=== PATIENT | female | born 1950 | race Caucasian/White ===

== ENCOUNTER 2018-08-19 08:20 | Outpatient (REF) | payer MEDICARE, BC, SELFPAY ==
[2018-08-19 14:18] LABS: ALT 35 U/L (12-78); AST 22 U/L (15-37); Albumin 3.6 g/dL (3.4-5.0); Alkaline Phosphatase 82 U/L (46-116); Anion Gap 10.5 mmol/L (3-11); BUN 25 mg/dL (7-18); Bilirubin, Total 0.5 mg/dL (0.2-1.0); CO2 26.5 mmol/L (21.0-32.0); CREATININE 0.69 mg/dL (0.55-1.02); Calcium 9.2 mg/dL (8.5-10.1); Calculated LDL 173 mg/dL; Chloride 105 mmol/L (98-107); Cholesterol 256 mg/dL (50-200); Glucose 87 mg/dL (70-100); HDL Cholesterol 71 mg/dL (40-60); Potassium 4.9 mmol/L (3.5-5.1); Sodium 142 mmol/L (136-145); Total Protein 6.9 g/dL (6.4-8.2); Triglyceride 60 mg/dL (30-150)
== END 2018-08-19 08:40 ==
LOC: NCHCN 08:20
PROVIDERS: PCP Family Medicine; Visit Provider Family Medicine
DX: E78.2 Mixed hyperlipidemia (principal)
CPT/HCPCS: 80053; 80061; 83721

== ENCOUNTER 2019-05-03 15:53 | Outpatient (REF) | payer MEDICARE, BC, SELFPAY ==
[2019-05-06 09:11] LABS: SARS-CoV-2 RNA Undetected (Undetected)
== END 2019-05-03 16:13 ==
LOC: NCHCN 15:53
PROVIDERS: PCP Family Medicine; Visit Provider Physician Assistant
DX: J06.9 Acute upper respiratory infection, unspecified (principal); Z20.828 Contact with and (suspected) exposure to other viral communicable diseases
CPT/HCPCS: U0003

== ENCOUNTER 2019-06-28 00:28 | Outpatient (CLI) | payer MEDICARE, BC, SELFPAY ==
--- NOTE | 2019-06-28 08:45 | DI.NM_ITS ---
APPROVED REPORT Exam: Exercise Treadmill Patient Location: Out-Patient Room/Bed: Stress Nurse: Mimi Logan RN BMI: 21.00 Baseline Rhythm: Sinus Rhythm Indications: Patient reports that approximately 2 weeks ago she woke up suddenly in the middle of the night with midsternal/substernal chest pain radiating to her right jaw which lasted approximately 10 minutes (pain went away on its own). She states she took 243 milligrams of Aspirin then fell back as leep and has not had any other symptoms since that one episode. Medical History Medical History: Strong family history of heart disease. Cardiac Medications: Aspirin Allergies: Tramadol, Environmental, Cats. Cardiac Risk Factors: FHX of CAD, Hyperlipidemia, Asthma Previous Cardiac Procedures: None Pretest Chest Pain Characteristics: No chest pain Exercise History: Physically active Physical Disabilities: None Lung Sounds: Clear to auscultation Heart Sounds: Regular Stress Test Details Test: Exercise stress testing was performed using a Matthew protocol. Nuclear Acquisition: Rest Tc-99m/Stress Tc-99m 1 day Rest Isotope: Tc-99m Sestamibi. Dose: 10 Date: 06/28/2019 Injection Time: 0845 Stress Isotope: Tc-99m Sestamibi. Dose: 31.0 Date: 06/28/2019 Injection Time: 1030 HR Resting HR Supine: 70 bpm Max Heart Rate (APMHR): 150 bpm Resting HR Standin bpm Target HR (85% APMHR): 127 bpm Max HR Achieved: 169 bpm % of APMHR: 112 HR response to stress: Normal HR response to stress BP Resting BP Supine: 114/68 mmHg Resting BP Standin/58 mmHg Max BP: 138/54 mmHg BP response to stress: Normal blood pressure response to stress. ECG Resting ECG: Sinus Rhythm Stress ECG: Sinus Tachycardia ST Change: Normal Arrhythmia: None Recovery ECG: Sinus Rhythm Recovery ST Change: Normal Recovery Arrhythmia: None Clinical Reason for Termination: Fatigue Stress Symptoms: Right sided chest pain at 6 minutes 42 seconds of exercise that stopped immediately upon stopping exercise. Exercise duration: 9 min21 sec Exercise capacity: 10.74 METs Functional Capacity: Above average capacity Stress ECG Conclusion 1. The patient exercised for 9 minutes (11 METS). 2. Rate-pressure product was 23,000. The patient had some chest discomfort during the test that did not limit her exercise. 3. There was no evidence of ischemia on the ECG portion of the exam. Stress Test Summary STAGE Time (mins) Speed (mph) Grade (%) HR BP SYMPTOMS METS Supine 70 114/68 Standing 76 110/58 1 3 1.7 10 124 126/62 4.6 2 6 2.5 12 150 136/58 7 3 9 3.4 14 167 138/54 10.2 1 min recovery 146 134/60 3 min recovery 102 126/62 6 min recovery 89 114/66 MPI Conclusion Ejection fraction with stress was 85%. There were no wall motion abnormalities. There is no evidence of ischemia on the imaging portion of the exam. This represents a normal SPECT stress test. Radiologist Interpretation Radiologist Interpretation by: Luis Armstrong MD Interpretation Date/Time: 06/29/2019 08:33:22
== END 2019-06-28 00:48 ==
PROVIDERS: PCP Family Medicine; Visit Provider Family Medicine
DX: R07.89 Other chest pain (principal); Z82.49 Family history of ischemic heart disease and other diseases of the circulatory system
CPT/HCPCS: 78452; 93016; 93018; 93017

== ENCOUNTER 2019-09-23 01:05 | Outpatient (CLI) | payer MEDICARE, BC, SELFPAY ==
--- NOTE | 2019-09-23 | DI.US_ITS ---
EXAM: US ABDOMEN CLINICAL HISTORY: EPIGASTRIC ABD PAIN,R10.13 TECHNIQUE: Ultrasound abdomen performed using standard protocol. COMPARISON: No exams were available for comparison FINDINGS: ABDOMINAL AORTA AND IVC: Visualized portions normal caliber. PANCREAS: Normal where visualized. LIVER: Normal. Hepatopedal flow in the Portal Vein. GALLBLADDER: No evidence of cholelithiasis. No evidence of wall thickening. No pericholecystic fluid identified. BILIARY SYSTEM: Common bile duct measures < 7 mm. No intrahepatic biliary ductal dilation. MOLINA'S SIGN: Negative. KIDNEYS: Kidneys are symmetric in size. No evidence of renal calculi. No evidence of hydronephrosis. No renal mass or cyst identified. SPLEEN: Not enlarged. ASCITES: None seen. IMPRESSION: Normal sonographic appearance of the upper abdomen. DATA REPOSITORY:
== END 2019-09-23 01:25 ==
PROVIDERS: PCP Family Medicine; Visit Provider Family Medicine
DX: R10.13 Epigastric pain (principal)
CPT/HCPCS: 76700

== ENCOUNTER 2019-10-08 18:18 | Outpatient (REF) | payer MEDICARE, BC, SELFPAY | END 2019-10-08 18:38 | LOC: NCHCN 18:18 | PROVIDERS: PCP Family Medicine; Visit Provider Family Medicine | DX: N39.0 Urinary tract infection, site not specified (principal) | CPT/HCPCS: 87077; 87086 ==

== ENCOUNTER 2019-11-23 01:41 | Outpatient (CLI) | payer MEDICARE, BC, SELFPAY ==
[2019-11-23 09:00] LABS: ALT 54 U/L (14-59); Calculated LDL 123 mg/dL (<100); Cholesterol 208 mg/dL (<200); HDL Cholesterol 78 mg/dL (40-60); Triglyceride 39 mg/dL (<150)
== END 2019-11-23 02:01 ==
PROVIDERS: PCP Family Medicine; Visit Provider Family Medicine
DX: E78.5 Hyperlipidemia, unspecified (principal)
CPT/HCPCS: 36415; 80061; 84460

== ENCOUNTER 2020-09-13 09:19 | Outpatient (REF) | payer MEDICARE, BC, SELFPAY ==
[2020-09-13 14:29] LABS: Bilirubin Negative (Negative); Blood Trace-intact (Negative); Clarity Clear (Clear); Glucose Negative (Negative); Ketones Negative (Negative); Leukocyte Esterase Trace (Negative); Nitrite Negative (Negative); Specific Gravity 1.015 (1.005-1.025); Urobilinogen 0.2 EU/dL (Up TO 0.2)
[2020-09-13 14:46] LABS: Bacteria Few HPF (Negative); C & S Indicated? Yes; Casts Negative LPF (Negative); Crystals Negative HPF (Negative); Epithelial Cells Few HPF (Negative); Mucus Negative (Negative); Other Cells Few Transitional (Negative)
== END 2020-09-13 09:20 | disposition home or self-care (01) ==
LOC: LBN 09:19
PROVIDERS: PCP Family Medicine; Visit Provider Family Medicine
DX: R10.31 Right lower quadrant pain (principal); N95.0 Postmenopausal bleeding; R82.998 Other abnormal findings in urine
CPT/HCPCS: 81003; 81015; 87086

== ENCOUNTER 2020-10-04 01:22 | Outpatient (CLI) | payer MEDICARE, BC, SELFPAY ==
--- NOTE | 2020-10-04 | DI.US_ITS ---
Exam(s) US PELVIS TRANSVAGINAL EXAM: US PELVIS TRANSVAGINAL CLINICAL HISTORY: POSTMENOPAUSAL VAGINAL BLEEDING, N95.0, RT LOWER QUAD PAIN TECHNIQUE: Ultrasound of the pelvis was performed both transabdominal and transvaginal. COMPARISON: US US ABDOMEN from 09/23/2019 FINDINGS: UTERUS: Uterus is surgically absent. CERVIX: There are no obvious nabothian cysts. RIGHT OVARY: Measures 2.6 x 0.8 x 1.9 cm No significant cysts nor masses evident in the right ovary. LEFT OVARY: Measures 2.3 x 1.8 x 1.1 cm No significant cysts nor masses evident in the left ovary. CUL-DE-SAC: No free fluid evident. IMPRESSION: 1. Uterus surgically absent. 2. No abnormal ovarian findings. 3. No extraovarian adnexal masses nor free fluid in the cul-de-sac. DATA REPOSITORY:
== END 2020-10-04 01:42 ==
PROVIDERS: PCP Family Medicine; Visit Provider Family Medicine
DX: N95.0 Postmenopausal bleeding (principal); R10.31 Right lower quadrant pain; Z90.710 Acquired absence of both cervix and uterus
CPT/HCPCS: 76830; 76856

== ENCOUNTER 2020-11-08 15:47 | Outpatient (REF) | payer MEDICARE, BC, SELFPAY ==
[2020-11-08 20:09] LABS: Calculated LDL 153 mg/dL (<100); Cholesterol 243 mg/dL (<200); HDL Cholesterol 79 mg/dL (40-60); Triglyceride 59 mg/dL (<150)
[2020-11-09 12:28] LABS: Vitamin D 25 Total 76.6 ng/mL (30-100)
== END 2020-11-08 15:48 | disposition home or self-care (01) ==
LOC: NCHCN 15:47
PROVIDERS: PCP Family Medicine; Visit Provider Family Medicine
DX: E78.5 Hyperlipidemia, unspecified (principal); E55.9 Vitamin D deficiency, unspecified
CPT/HCPCS: 80061; 82306

== ENCOUNTER 2021-03-05 13:32 | Outpatient (REF) | payer MEDICARE, BC, SELFPAY ==
[2021-03-05 15:13] LABS: ALT 50 U/L (14-59); AST 28 U/L (15-37); Albumin 3.8 g/dL (3.4-5.0); Alkaline Phosphatase 91 U/L (46-116); Anion Gap 5.8 mmol/L (3-11); BUN 14 mg/dL (7-18); Bilirubin, Total 0.6 mg/dL (0.2-1.0); CO2 30.2 mmol/L (21.0-32.0); CREATININE 0.7 mg/dL (0.55-1.02); Calcium 9.1 mg/dL (8.5-10.1); Calculated LDL 115 mg/dL (<100); Chloride 102 mmol/L (98-107); Cholesterol 207 mg/dL (<200); Glucose 95 mg/dL (74-106); HDL Cholesterol 77 mg/dL (40-60); Potassium 4.3 mmol/L (3.5-5.1); Sodium 138 mmol/L (136-145); Total Protein 7.3 g/dL (6.4-8.2); Triglyceride 76 mg/dL (<150)
== END 2021-03-05 13:33 | disposition home or self-care (01) ==
LOC: NCHCN 13:32
PROVIDERS: PCP Family Medicine; Visit Provider Family Medicine
DX: E78.5 Hyperlipidemia, unspecified (principal); Z00.00 Encounter for general adult medical examination without abnormal findings
CPT/HCPCS: 80053; 80061

== ENCOUNTER 2021-11-09 20:14 | Outpatient (REF) | payer MEDICARE, BC, SELFPAY ==
[2021-11-09 19:28] LABS: Bilirubin Negative (Negative); Blood Small (Negative); Clarity Sl Cloudy (Clear); Glucose Negative (Negative); Ketones Negative (Negative); Leukocyte Esterase Small (Negative); Nitrite Negative (Negative); Urobilinogen 0.2 EU/dL (Up TO 0.2); pH 5.5 (5-8)
[2021-11-09 19:35] LABS: Bacteria Few HPF (Negative); C & S Indicated? Yes; Casts Negative LPF (Negative); Crystals Negative HPF (Negative); Epithelial Cells Few HPF (Negative); Mucus Negative (Negative); WBC 20-50 HPF (0-5)
== END 2021-11-09 20:15 | disposition home or self-care (01) ==
LOC: NCHCN 20:14
PROVIDERS: PCP Family Medicine; Visit Provider Family Medicine
DX: R30.0 Dysuria (principal)
CPT/HCPCS: 87077; 81003; 81015; 87086; 87186

== ENCOUNTER → 2022-09-30 03:42 | Outpatient (CLI) | payer MEDICARE, BC, SELFPAY ==
--- NOTE | 2022-09-30 08:35 | DI.US_ITS ---
Exam(s) US SOFT TISSUE HEAD OR NECK EXAM: US SOFT TISSUE HEAD OR NECK CLINICAL HISTORY: RT NECK PAIN, M54.2, swollen gland. TECHNIQUE: Ultrasound was performed using standard protocol. COMPARISON: No exams were available for comparison FINDINGS: Sonographic assessment utilizing grayscale and color Doppler imaging was performed and targeted to th e area of clinical concern. There are several lymph nodes seen in the right neck. They have a benign sonographic appearance with an eccentric fatty hilum. The largest measures 2.5 x 0.4 x 1.3 cm. No suspicious cystic or solid m asses are seen in the right neck. IMPRESSION: 1. Sonographically benign appearing lymph nodes in the right neck. The largest measures 2.5 cm long. 2. No suspicious cystic or solid masses are seen in the right neck. DATA REPOSITORY:
== END ==
PROVIDERS: PCP Family Medicine; Visit Provider Nurse Practitioner Family
DX: M54.2 Cervicalgia (principal)
CPT/HCPCS: 76536

== ENCOUNTER 2022-10-21 12:33 | Outpatient (REF) | payer MEDICARE, BC, SELFPAY ==
[2022-10-21 15:16] LABS: Calculated LDL 91 mg/dL (<100); Cholesterol 185 mg/dL (<200); HDL Cholesterol 89 mg/dL (40-60); Triglyceride 28 mg/dL (<150)
== END 2022-10-21 12:34 | disposition home or self-care (01) ==
LOC: NCHCN 12:33
PROVIDERS: PCP Family Medicine; Visit Provider Family Medicine
DX: E78.5 Hyperlipidemia, unspecified (principal)
CPT/HCPCS: 80061

== ENCOUNTER 2022-12-06 11:14 | Outpatient (CLI) | payer MEDICARE, BC, SELFPAY ==
--- NOTE | 2022-12-06 11:15 | RT.EKG_ITS ---
APPROVED REPORT Exam: Resting ECG Reason for Exam: NPW baseline needed Patient Location: O HR:75 bpm ECG Measurements Heart Rate 75 AXIS MT 114 P 77 QRSd 91 QRS 30 QT 374 T 51 QTc 418 Conclusion Sinus rhythm...normal P axis, V-rate 50- 99 Borderline short MT interval...MT int <120mS Normal Electrocardiogram
== END 2022-12-06 11:15 | disposition home or self-care (01) ==
LOC: DI.CARD 11:23
PROVIDERS: PCP Family Medicine; Referring Provider Family Medicine; Visit Provider Internal Medicine Cardiovascular Disease
DX: R06.02 Shortness of breath (principal)
CPT/HCPCS: 93010

== ENCOUNTER → 2022-12-06 11:14 | Outpatient (BNVA) | payer MEDICARE, BC, SELFPAY | PROVIDERS: PCP Family Medicine; Referring Provider Family Medicine; Visit Provider Internal Medicine Cardiovascular Disease | DX: M54.2 Cervicalgia (principal); E78.00 Pure hypercholesterolemia, unspecified; R07.9 Chest pain, unspecified | CPT/HCPCS: 93005; 99203 ==

== ENCOUNTER → 2022-12-16 00:12 | Outpatient (CLI) | payer MEDICARE, BC, SELFPAY ==
--- NOTE | 2022-12-16 07:00 | DI.NM_ITS ---
APPROVED REPORT Exam: Exercise Treadmill Patient Location: Out-Patient Room/Bed: Stress Nurse: Everett Prasad RN Ordering Provider:IBIS PRAJAPATI, Contact Number: BMI: 20.69 Baseline Rhythm: Sinus Rhythm Indications: Chest pain and dyspnea on exertion. Medical History Medical History: high cholesterol, asthma. Cardiac Medications: atorvastatin Allergies: tramadol Cardiac Risk Factors: high cholesterol. Previous Cardiac Procedures: none Exercise History: Physically active Physical Disabilities: none Lung Sounds: clear Heart Sounds: reg Stress Test Details Test: Exercise stress testing was performed using a Matthew protocol. Nuclear Acquisition: Rest Tc-99m/Stress Tc-99m 1 day Rest Isotope: Tc-99m Sestamibi. Dose: 10.0 Date: 12/16/2022 Injection Time: 0915 Stress Isotope: Tc-99m Sestamibi. Dose: 31.0 Date: 12/16/2022 Injection Time: 1107 HR Resting HR Supine: 67 bpm Max Heart Rate (APMHR): 147.020311 bpm Resting HR Standin bpm Target HR (85% APMHR): 124.051066 bpm Max HR Achieved: 148 bpm % of APMHR: 100.68 Recovery HR: 70 bpm HR response to stress: Normal HR response to stress BP Resting BP Supine: 122/72 mmHg Resting BP Standin/58 mmHg Max BP: 138/62 mmHg Recovery BP: 112/68 mmHg BP response to stress: Normal blood pressure response to stress. ECG Resting ECG: Sinus Rhythm Ectopy: none Stress ECG: Sinus Tachycardia ST Change: No significant ST segment changes noted Arrhythmia: none Recovery ECG: Sinus Rhythm Recovery ST Change: No significant ST segment changes noted Recovery Arrhythmia: none Clinical Exercise duration: 4 min54 sec Highest Stage Reached: Stage 2: 2.5 mph at 12% grade. Exercise capacity: 6.92 METs Rate Pressure Product: [id number] Stress ECG Conclusion 1. Electrocardiogram was within normal limits 2. Patient walked on the Matthew protocol and completed a workload of 6.92 METS 3. Normal heart rate and blood pressure response to exercise. The patient achieved 100% of predicted heart rate for age 4. There was no electrocardiographic evidence of myocardial ischemia 5. There were no dysrhythmias 6. See MPI report Stress Test Summary STAGE Time (mins) Speed (mph) Grade (%) HR BP SpO2 SYMPTOMS METS Supine 67 122/72 98 Standing 71 112/58 1 3 1.7 10 122 122/62 95 4.5 1 min recovery 148 138/62 96 3 min recovery 71 122/72 98 6 min recovery 70 112/68 98 MPI Conclusion Myocardial perfusion is normal. There is no ischemia or evidence of prior infarction Ejection fraction is 87% with hyperdynamic wall motion Radiologist Interpretation Radiologist Interpretation by: Luis Armstrong MD Interpretation Date/Time: 12/16/2022 16:17:50
== END ==
PROVIDERS: PCP Family Medicine; Visit Provider Internal Medicine Cardiovascular Disease
DX: E78.00 Pure hypercholesterolemia, unspecified (principal); R07.9 Chest pain, unspecified
CPT/HCPCS: 78452; 93016; 93018; 93017

== ENCOUNTER → 2022-12-30 02:46 | Outpatient (CLI) | payer MEDICARE, BC, SELFPAY ==
--- NOTE | 2022-12-30 | DI.DEXA_ITS ---
Exam(s) XR DEXA BONE DENSITY W/WO JUJU EXAM: XR DEXA BONE DENSITY W/WO JUJU CLINICAL HISTORY: POSTMENOPAUSAL SCREENING, Z78.0 TECHNIQUE: [employer] Horizon C densitometer analysis of left hip, lumbar spine and left forearm. Lat eral survey image of the thoracic and lumbar spine. COMPARISON: No exams were available for comparison FINDINGS: Lateral view of the thoracic and lumbar spine shows no evidence of compression fractures. Bone mineral density measurements of the lumbar spine correspond to a total T-score of -1.9, in the osteopenic range. Bone mineral density measurements of the left hip correspond to a total T-score of -1.7 . The femora l neck T-score is -1.1, in the osteopenic range. . Theleft forearm bone mineral density measurements correspond to a T-score of the distal 3rd of -2.9, in the osteoporotic range.. IMPRESSION: Osteopenia of the spine and hip. Osteoporosis of the forearm.
== END ==
PROVIDERS: PCP Family Medicine; Visit Provider Family Medicine
DX: Z78.0 Asymptomatic menopausal state (principal); Z13.820 Encounter for screening for osteoporosis
CPT/HCPCS: 77080

== ENCOUNTER → 2023-08-06 20:23 | Outpatient (CLI) | payer MEDICARE, BC, SELFPAY ==
--- NOTE | 2023-08-06 | DI.RAD_ITS ---
Exam(s) XR KNEE RT 3V AP,LAT,FELIPA EXAM: XR KNEE RT 3V AP,LAT,FELIPA CLINICAL HISTORY: M25.561 Pain in rt knee. TECHNIQUE: 2D digital imaging was performed of the right knee. Three views obtained. AP, lateral an d PA tunnel views were obtained. COMPARISON: No priors for comparison. FINDINGS: BONES: No acute fracture is present. No bony destructive lesion is seen. There are enthesophytes at t he anterior patella. JOINTS: The knee is normally aligned. There is a small joint effusion. The articular surfaces are we ll maintained. SOFT TISSUE: Normal. IMPRESSION: No acute fracture or dislocation. DATA REPOSITORY: RADIATION DOSE DELIVERED:
--- NOTE | 2023-08-06 17:37 | DI.VRAD_ITS ---
PROCEDURE INFORMATION: Exam: XR Right Knee Exam date and time: 08/06/2023 4:50 PM Age: 73 years old Clinical indication: Other: Pain in RT knee TECHNIQUE: Imaging protocol: Radiologic exam of the right knee. Views: 3 views. COMPARISON: No relevant prior studies available. FINDINGS: Bones/joints: No acute fracture or subluxation. Small joint effusion. Soft tissues: Benign appearing distal quadriceps enthesophyte. Vasculature: Atherosclerosis. IMPRESSION: 1. No acute bony pathology. 2. Small joint effusion. Dictated and Authenticated by: Maya Amaya MD. Ordering:ANNA King MD
== END ==
PROVIDERS: PCP Family Medicine; Visit Provider Physician Assistant Medical
DX: M25.561 Pain in right knee (principal)
CPT/HCPCS: 73562

== ENCOUNTER 2023-10-20 17:14 | Observation (INO) | payer MEDICARE, BC, SELFPAY ==
[2023-10-20] VITALS (50 sets, daily range): BP systolic 97–166; BP diastolic 36–75; PULSE 60–88; RESP 9–28; TEMP 36.1–36.7; O2SAT 95–99
--- NOTE | 2023-10-20 17:15 | RT.EKG_ITS ---
APPROVED REPORT Exam: Resting ECG Reason for Exam: Chest Pain Patient Location: E HR:70 bpm ECG Measurements Heart Rate 70 AXIS WV 111 P 74 QRSd 91 QRS 55 QT 383 T 68 QTc 413 Conclusion Sinus rhythm 70 Normal axis no stemi
[2023-10-20] MEDS: Aspirin 81 MG CHEW 324 MG CH (17:31)
[2023-10-20] MEDS: nitroGLYcerin 0.4 MG TAB SL (17:40)
[2023-10-20 17:46] LABS: Abs Immature Grans 0.01 10^3/uL (0.0-0.06); Absolute Basophil Count 0.04 10^3/uL (0.0-0.2); Absolute Eosinophil Count 0.05 10^3/uL (0.0-0.7); Absolute Lymphocyte Count 2.07 10^3/uL (1.2-3.4); Absolute Monocyte Count 0.36 10^3/uL (0.1-0.8); Basophils % 0.7 %; Eosinophils % 0.9 %; HCT 39.4 % (36.0-46.0); HGB 13.1 g/dL (11.2-15.7); Immature Grans % 0.2 %; Lymphocytes % 38.1 %; MCH 31.9 pg (27.0-33.0); MCHC 33.2 % (32.0-36.0); MCV 96 fL (80-95); MPV 9.5 fL (8.0-11.0); Monocytes % 6.6 %; Neutrophils % 53.5 %; Platelet Count 314 10^3/uL (130-400); RBC 4.11 10^6/uL (3.93-5.22); RDW 13.4 % (11.7-14.6); RDW-SD 47.8 fL; WBC 5.43 10^3/uL (4.4-10.8)
--- NOTE | 2023-10-20 18:03 | DI.RAD_ITS ---
Exam(s) XR PORTABLE CHEST AP EXAM: XR PORTABLE CHEST AP CLINICAL HISTORY: chest pain TECHNIQUE: 2D digital imaging was performed of the chest. One image was obtained. An AP view was ob tained. COMPARISON: CR CHEST 2 VIEWS PA,LAT from 01/27/2014 FINDINGS: MEDIASTINUM: Normal. HEART: Normal. PULMONARY VASCULATURE: Normal. LUNGS: Clear. PLEURAL SPACE: No pleural effusion or pneumothorax. BONE:Within normal limits for the patient's age. OTHER FINDINGS:Normal. IMPRESSION: No acute pulmonary findings. DATA REPOSITORY: RADIATION DOSE DELIVERED:
[2023-10-20 18:14] LABS: ALT 30 U/L (14-59); AST 26 U/L (15-37); Albumin 3.8 g/dL (3.4-5.0); Alkaline Phosphatase 94 U/L (46-116); Anion Gap 5.5 mmol/L (3-11); BUN 10 mg/dL (7-18); CO2 29.5 mmol/L (21.0-32.0); CREATININE 0.8 mg/dL (0.55-1.02); Chloride 101 mmol/L (98-107); Estimated GFR 77.27 (mL/min/1.73m2); Glucose 132 mg/dL (74-106); Magnesium 2.1 mg/dL (1.8-2.4); NT-proBNP 39 pg/mL (<300); Potassium 3.5 mmol/L (3.5-5.1); Sodium 136 mmol/L (136-145); Total Protein 8.1 g/dL (6.4-8.2); Troponin I 4 ng/L (4-51)
--- NOTE | 2023-10-20 18:15 | ED.GENADUL_ITS ---
Discharge Plan Disposition Patient Disposition: Admit to [facility] Condition: Stable Discharge Details Chief Complaint: Chest Pain Clinical Impression: Chest pain Primary Care Provider: Kalpana Ayon ED Provider: Humberto Kay Home Meds and New Rx's Prescriptions: No Action montelukast 10 mg tablet 10 mg PO QPM vitamin B complex [B Complex-Vitamin B12] tablet 1 tab PO DAILY cholecalciferol (vitamin D3) 50,000 unit capsule 50,000 unit PO QWEEK levalbuterol tartrate [Xopenex HFA] 45 mcg/actuation HFA aerosol inhaler 2 inh IH Q6H aspirin [Adult Low Dose Aspirin] 81 mg tablet,delayed release (DR/EC) 81 mg PO DAILY PRN estradiol [Vagifem] 10 mcg tablet 10 mcg vaginal DAILY 360 Days Qty: 30 3RF Rx Instructions: Insert vaginally daily for 7 days, then twice weekly. atorvastatin [Lipitor] 10 mg tablet 10 mg PO QHS fexofenadine [Allergy Relief (fexofenadine)] 60 mg tablet 60 mg PO DAILY amlodipine 5 mg tablet 5 mg PO DAILY Patient Comments: TAKE 1 TABLET BY MOUTH DAILY coenzyme Q10 [Co Q-10] 10 mg capsule 10 mg PO ONCE HPI General Date/Time Provider Initiated Documentation: 10/20/23 17:17 . Limitations to Documentation: no limitations . Information obtained by: patient . HPI Narrative: 73-year-old female past medical history hide for Stable angina with recent left heart cath performed at [facility] presents for evaluation of chest pressure. She reports that she had her catheterization on Friday. Since then she is feeling substernal pressure that radiates up into her neck. It is definitely a he noticed some normal. She rates that around 4 out of 10. Feels like she cannot take a deep breath, but otherwise is not really short of breath. No nausea or diaphoresis. She states that over some time she has been having stable exertional pain and she has relieved with rest and nitro. This is what led to his catheterization. She states that now she is having this pain with minimal exertion such as going up the stairs to her house or walking around her house. She has been unable to do her normal activities and not reports that she is very fit and active. She needs constant chest normal for her so after the previous seen here, she was maintained about the ongoing pain. She talked to her institutional commodity analyst today at [facility] who informed her that this is not long she should come to the emergency department for evaluation.. Related Data Home Medications ?Medication ?Instructions ?Recorded ?Confirmed cholecalciferol (vitamin D3) 1,250 50,000 unit PO QWEEK 03/05/18 10/20/23 mcg (50,000 unit) capsule levalbuterol tartrate 45 2 inh inhalation Q6H 03/05/18 10/20/23 mcg/actuation aerosol inhaler (Xopenex HFA) montelukast 10 mg tablet 10 mg PO QPM 03/05/18 10/20/23 vitamin B complex (B 1 tab PO DAILY 03/05/18 10/20/23 Complex-Vitamin B12 tablet) estradiol 10 mcg vaginal tablet 10 mcg vaginal DAILY 12 months #30 12/31/21 10/20/23 (Vagifem) tabs atorvastatin 10 mg tablet (Lipitor) 10 mg PO QHS 12/03/22 10/20/23 fexofenadine 60 mg tablet (Allergy 60 mg PO DAILY 12/03/22 10/20/23 Relief (fexofenadine)) aspirin 81 mg tablet,delayed 81 mg PO DAILY PRN 12/06/22 10/20/23 release (Adult Low Dose Aspirin) amlodipine 5 mg tablet 5 mg PO DAILY 10/20/23 10/20/23 coenzyme Q10 10 mg capsule (Co 10 mg PO ONCE 10/20/23 10/20/23 Q-10) Previous Rx's ?Medication ?Instructions ?Recorded estradiol 10 mcg vaginal tablet 10 mcg vaginal DAILY 12 months #30 12/31/21 (Vagifem) tabs Allergies Allergy/AdvReac Type Severity Reaction Status Date / Time tramadol Allergy Intermediate Psychosis Verified 10/20/23 17:46 General Stated Complaint: Chest Pain OMERO: 3 Exam Narrative Exam Narrative: Review of Systems: All systems reviewed & are unremarkable except as noted in HPI and below Well-developed, no acute distress NCAT PERRL, normal conjunctiva RRR no murmur, no chest wall tenderness Unlabored respiratory effort, clear bilaterally Nondistended abdomen, soft nontender Extremities w/o edema Course Vital Signs Vital signs: Vital Signs Pulse 70 10/20/23 17:22 Respiratory Rate 21 10/20/23 17:22 Blood Pressure 166/60 H 10/20/23 17:22 Pulse 84 10/20/23 17:49 Pulse 65 10/20/23 18:04 Respiratory Rate 11 L 10/20/23 18:04 Respiratory Effort Normal 10/20/23 17:29 Respiratory Depth Normal 10/20/23 17:29 Respiratory Pattern Normal 10/20/23 17:29 Blood Pressure 117/59 L 10/20/23 17:49 Blood Pressure Mean 76 10/20/23 17:46 Blood Pressure Position Sitting 10/20/23 17:24 Pulse Oximetry 95 10/20/23 17:49 Oxygen Delivery Method Room Air 10/20/23 17:49 Oxygen Flow Rate 0 10/20/23 17:49 Pain Level 3 10/20/23 17:24 Lab/Test Results Lab/Test Results: Laboratory Tests Range/Units 10/20/23 17:42 WBC (4.4-10.8) 10^3/uL 5.43 RBC (3.93-5.22) 10^6/uL 4.11 Hgb (11.2-15.7) g/dL 13.1 Hct (36.0-46.0) % 39.4 MCV (80-95) fL 96 H MCH (27.0-33.0) pg 31.9 MCHC (32.0-36.0) % 33.2 RDW (11.7-14.6) % 13.4 Plt Count (130-400) 10^3/uL 314 MPV (8.0-11.0) fL 9.5 Immature Gran % % 0.2 Neutrophils % % 53.5 Lymphocytes % % 38.1 Monocytes % % 6.6 Eosinophils % % 0.9 Basophils % % 0.7 Nucleated RBC % (0.0-0.3) % 0.0 Absolute Neutrophils (1.2-6.7) 10^3/uL 2.90 Absolute Lymphocytes (1.2-3.4) 10^3/uL 2.07 Absolute Monocytes (0.1-0.8) 10^3/uL 0.36 Absolute Eosinophils (0.0-0.7) 10^3/uL 0.05 Absolute Basophils (0.0-0.2) 10^3/uL 0.04 Medical Decision Making Emergent evaluation of chest pain. Patient had recent cardiac catheterization. She reports 2 vessels with occlusions of 50 to 20%. No stenting was performed. She was started on a blood thinner. Her EKG was independently reviewed by me, sinus 70 normal axis, no acute ischemic changes. She is currently having symptoms. And chest pain that she describes as pressure. Given known coronary disease recent procedure, patient highly suspicious for cardiac etiology. Full dose aspirin given, will give nitro differently chest pain. Given catheterization at [facility], we will touch base with their institutional commodity analyst once labs result to determine best course of action. 1820 labs reviewed. There is no leukocytosis or significant anemia. There is no electrolyte derangement, or renal insufficiency. Mild elevation in glucose without signs of DKA. First high sensitivity troponin is 4. I have reached out to [facility] cardiology for consultation regarding their post cath patient 1939 The patient's has spoken with the credit collections specialist at [facility]. They are requesting a D-dimer which I will add to the labs. Her second troponin has also resulted and is 5. There is significant delta there. Still waiting for formal consultation with cardiology/ 2034 Spoke with heel sprayer first Dr. Shoemaker. Discussed the elevated D-dimer and so this does not seem clinically to indicate a pulmonary embolism, at this point we will have to get a CTA to further evaluate. He does not recommend heparin infusion at this point. He does recommend starting Imdur 30 mg and reevaluating the exertional chest pain. At this time he has accepted the patient for admission under Dr. Meadows. They are currently listing cases for transfer for tomorrow. Given that, I have discussed with Dr. Vernon the hospitalist to admit the patient to their service pending transfer to [facility]. He will follow-up on how she is feeling after the imdur CTA. Quality:[facility] Health Related Social Needs: No Data to Display PFSH All Active Problems (Updated 10/20/23 @ 21:42 by Humberto Kay MD) Chest pain (Acute) Chest pain on exertion (Acute) Family history of colon cancer (Acute) Family history of breast cancer (Acute) Atrophic vaginitis (Acute) Mild persistent asthma (Chronic) Medical History ALMA exposure in utero Endometriosis Seasonal allergies Neck pain Vitamin D deficiency disease Anemia Family history of colon cancer requiring screening colonoscopy High cholesterol Family History Maternal Grandmother CAD (coronary artery disease) Heart disease several [place]'s 70 Stroke Mother Breast cancer CAD (coronary artery disease) Sister Breast cancer Maternal Uncle , age 56 Stroke Sister Uterine cancer Cervical cancer Father Colon cancer age 70 Paternal Grandfather Colon cancer in 70's Other Cancer Social History Smoking risk assessment performed?: No Drug use: Never Household members: spouse 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 What is your relationship status?: Panel score (0-1 are the most socially isolated patients): 1 What type of physical activity do you participate in: bicycling and regular exercise Duration: 30-45 minutes/day Female Reproductive History Menstrual Age of Menarche: 11 control method: none Menopause type: surgical Date of menopause: 02/10/79 History History 5 Para Hx # Term Pregnancies 3 Multiple births Hx # Pregnancies Ectopic pregnancies AB induced Hx Number of Living Children 3 AB spontaneous 2
[2023-10-20 19:14] LABS: Troponin I 5 ng/L (4-51)
[2023-10-20 20:10] LABS: D-Dimer 1378 ng/mlFEU (<500)
[2023-10-20] MEDS: Isosorbide Mononitrate 30 MG TABCR PO (20:58)
[2023-10-20 21:09] LABS: Troponin I 6 ng/L (4-51)
--- NOTE | 2023-10-20 21:33 | HPE_ITS ---
Date of service: 10/20/23 Time of Service: 21:33 Assessment and Plan Assessment and plan (1) Chest pain: Status: Acute Assessment and plan: Though there are some questions here, I think one has to regard this essentially as a continuation of prior anginal syndrome, in that the symptoms are exertional, consistent with angina and respond to NTG; in addition there was definite CAD identified on recent cath. What is most puzzling, though, is why the threshold for triggering pain should be lower since procedure; as well as negative trops and normal EKG given report of persistent pain. I suppose some complication of the procedure itself would satisfy some of these questions but there is no evidence of such at present. For now patient has been given dose of Imdur and is asymptomatic. I would monitor overnight, continue the Imdur, with planned transfer to [facility] in morning per Cardiology. In meantime will await results of CTA, though story does not seem suggestive of PE. History of Present Illness History of Present Illness Chief Complaint: CP Narrative: 73 female with h/o exertional chest pain over past 2-4 years, typically only with only fairly intense activity, such as climbing a slope. Pain is described as a heaviness or pressure, with radiation to neck. Due (she reports) to various delays in her getting evaluated it was only recently that she was advised to have cardiac cath, which was done 3 days DIRECTOR OF TESTING. report is that there was one 50% lesion, one 20% (I do not have the precise locations) but that they were deemed not target lesions and no PCI was performed. She had previously been on ASA and statin, Amlodipine was added to the regimen. Since discharge she reports persistent waxing and waning pain which is essentially identical to prior, but ois now occurring with qwuite modest degrees of acticvity. Again, relived by rest. She was advised to come to ERR. Here in ER w/u has been of note for normal EKG (with pain ); negative trop x2; negative CXR; and d-Dimer 1663; CTA is pending. NTG SL x1 relieved the pain entirely. [facility] was consulted and advised adding Imdur, and patient is accepted for transfer tomorrow to service of Dr. Meadows. Review of Systems Narrative: per HPI PFSH All Active Problems (Updated 10/20/23 @ 21:42 by Humberto Kay MD) Chest pain (Acute) Chest pain on exertion (Acute) Family history of colon cancer (Acute) Family history of breast cancer (Acute) Atrophic vaginitis (Acute) Mild persistent asthma (Chronic) Medical History ALMA exposure in utero Endometriosis Seasonal allergies Neck pain Vitamin D deficiency disease Anemia Family history of colon cancer requiring screening colonoscopy High cholesterol Family History Maternal Grandmother CAD (coronary artery disease) Heart disease several NH's 70 Stroke Mother Breast cancer CAD (coronary artery disease) Sister Breast cancer Maternal Uncle , age 56 Stroke Sister Uterine cancer Cervical cancer Father Colon cancer age 70 Paternal Grandfather Colon cancer in 70's Other Cancer Social History Smoking risk assessment performed?: No Drug use: Never Household members: spouse 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 What is your relationship status?: Panel score (0-1 are the most socially isolated patients): 1 What type of physical activity do you participate in: bicycling and regular exercise Duration: 30-45 minutes/day Female Reproductive History Menstrual Age of Menarche: 11 control method: none Menopause type: surgical Date of menopause: 02/10/79 History History 2 5 Para Hx # Term Pregnancies 3 Multiple births Hx # Pregnancies Ectopic pregnancies AB induced Hx Number of Living Children 3 AB spontaneous 2 Meds Allergies and Home Medications Allergies Allergy/AdvReac Type Severity Reaction Status Date / Time tramadol Allergy Intermediate Psychosis Verified 10/20/23 17:46 Home Medications ?Medication ?Instructions ?Recorded ?Confirmed ?Type cholecalciferol (vitamin D3) 1,250 50,000 unit PO QWEEK 03/05/18 10/20/23 History mcg (50,000 unit) capsule levalbuterol tartrate 45 2 inh inhalation Q6H 03/05/18 10/20/23 History mcg/actuation aerosol inhaler (Xopenex HFA) montelukast 10 mg tablet 10 mg PO QPM 03/05/18 10/20/23 History vitamin B complex (B 1 tab PO DAILY 03/05/18 10/20/23 History Complex-Vitamin B12 tablet) estradiol 10 mcg vaginal tablet 10 mcg vaginal DAILY 12 months #30 12/31/21 10/20/23 Rx (Vagifem) tabs atorvastatin 10 mg tablet (Lipitor) 10 mg PO QHS 12/03/22 10/20/23 History fexofenadine 60 mg tablet (Allergy 60 mg PO DAILY 12/03/22 10/20/23 History Relief (fexofenadine)) aspirin 81 mg tablet,delayed 81 mg PO DAILY PRN 12/06/22 10/20/23 History release (Adult Low Dose Aspirin) amlodipine 5 mg tablet 5 mg PO DAILY 10/20/23 10/20/23 History coenzyme Q10 10 mg capsule (Co 10 mg PO ONCE 10/20/23 10/20/23 History Q-10) Exam Narrative Exam Narrative: 142/57, 78, temp not recorded, 18, 95% RA. HEENT atraumatic; neck supple, JVP approx 4 cm; lungs clear; heart RRR w/o MRG; abdomen soft and NT; extremities w/o edema, right radial pulse (site of cath insertion) full w/o hematoma, pedal pulses 2+/=; neuro Ox3, lucid, moves all 4s Results Labs 10/20/23 17:42 10/20/23 17:42 Labs: Laboratory Results - last 24 hr 10/20/23 10/20/23 10/20/23 17:42 18:50 20:42 WBC 5.43 RBC 4.11 Hgb 13.1 Hct 39.4 MCV 96 H MCH 31.9 MCHC 33.2 RDW 13.4 Plt Count 314 MPV 9.5 Immature Gran % 0.2 Neutrophils % 53.5 Lymphocytes % 38.1 Monocytes % 6.6 Eosinophils % 0.9 Basophils % 0.7 Nucleated RBC % 0.0 Absolute Neutrophils 2.90 Absolute Lymphocytes 2.07 Absolute Monocytes 0.36 Absolute Eosinophils 0.05 Absolute Basophils 0.04 D-Dimer 1378 H Sodium 136 Potassium 3.5 Chloride 101 Carbon Dioxide 29.5 Anion Gap 5.5 BUN 10 Creatinine 0.8 Est GFR (CKD-EPI 2020) 77.27 Glucose 132 H Calcium 10.0 Magnesium 2.1 Total Bilirubin 0.30 AST 26 ALT 30 Alkaline Phosphatase 94 Troponin I High Sens 4 5 6 NT-Pro-B Natriuret Pep 39 Total Protein 8.1 Albumin 3.8 Last Vital Signs Pulse 78 10/20/23 21:16 Resp 18 10/20/23 21:16 BP 142/57 H 10/20/23 21:16 Pulse Ox 95 10/20/23 17:49 Time Spent Time spent with Patient: 55-74 minutes Time was spent: preparing to see the patient(eg.review tests), obtaining and/or reviewing separately otained hiistory, ordering medications,tests, procedures, referring, communicating with other health health care manager and indepentently interpreting results
[2023-10-20] MEDS: Normal Saline - Diluent 50 ML VIAL IJ (21:34)
[2023-10-20] MEDS: Omnipaque 350 MG/ML 100 ML BTL 60 ML IJ (21:35)
[2023-10-20] MEDS: Normal Saline Flush 10 ML SYR IVP (21:36)
--- NOTE | 2023-10-20 21:52 | DI.CT_ITS ---
Exam(s) CT CHEST PE CTA EXAM: CT CHEST PE CTA CLINICAL HISTORY: chest pain. TECHNIQUE: Imaging Protocol: Axial CT angiography was performed with multi-slice acquisition and mu lti-planar reconstructions as well as axial, coronal and sagittal MIP reconstructions. CONTRAST MATERIAL: Intravenous: Omnipaque 350 Contrast volume:60ml COMPARISON: CR XR PORTABLE CHEST AP from 10/20/2023 FINDINGS: Pulmonary Arteries: No evidence of filling defect to suggest pulmonary emboli. Tracheobronchial tree: No mucous plugging. Mediastinum and Fide: No dominant adenopathy or fluid collection. Pulmonary parenchyma: Mild tree-in-bud opacities in the lingula. Minimal density seen in the anterio r inferior right middle lobe. Mild apical scarring. No consolidation or dominant measurable mass. Pleura: No effusion or pneumothorax. Heart: The heart is not dilated. No coronary artery calcifications are seen. Aorta: Thoracic aorta non-dilated. No dissection. Upper abdomen: No acute findings. Bones: Unremarkable for age. Tubes, Catheters, and Lines: None Soft tissues: Unremarkable. IMPRESSION: No evidence of pulmonary embolism. Mild infiltrates in lingula and right middle lobe. RADIATION DOSE DELIVERED: 38.18mGy.cm Total DLP DATA REPOSITORY: All CT scans at this facility are submitted to the National Radiology Data Registry (NRDR) Dose Index Registry (DIR) with the [employer] (ACR). RADIATION OPTIMIZATION: All CT scans at this facility use at least one of these dose optimization te chniques: automated exposure control; mA and/or kV adjustment per patient size (includes targeted exa ms where dose is matched to clinical indication); or iterative reconstruction.
--- NOTE | 2023-10-20 22:20 | W.PC.ACHO ---
Registration Status: Primary Language: Preferred Language: ED Information & Data Chief Complaint Chest Pain 10/20/23 18:19 Triage Note 3 of 10 aching pain starting 10/20/23 17:24 center of chest radiating up to her neck. Pain made worse with even mild activity. Recent cardiac cath at [facility] (10/16). Medical / Surgical History (Last Reviewed 10/20/23 @ 21:40 by Catrachito Vernon MD) ALMA exposure in utero Endometriosis Seasonal allergies Neck pain Vitamin D deficiency disease Anemia Family history of colon cancer requiring screening colonoscopy High cholesterol Most Recent Vital Signs Temperature 36.7 C 10/20/23 21:52 Temperature Source Oral 10/20/23 21:52 Pulse 79 10/20/23 22:01 Pulse 79 10/20/23 22:01 Respiratory Rate 16 10/20/23 22:01 Respiratory Effort Normal 10/20/23 17:29 Respiratory Depth Normal 10/20/23 17:29 Respiratory Pattern Normal 10/20/23 17:29 Blood Pressure 101/46 L 10/20/23 22:01 Blood Pressure Mean 62 10/20/23 22:01 Blood Pressure Position Sitting 10/20/23 17:24 Pulse Oximetry 95 10/20/23 17:49 Oxygen Delivery Method Room Air 10/20/23 17:49 Oxygen Flow Rate 0 10/20/23 17:49 Pain Level 3 10/20/23 17:24 Allergies tramadol Allergy (Intermediate, Verified 10/20/23 17:46) Psychosis Active Medications Generic Name Dose Route Start Last Admin Trade Name Freq PRN Reason Stop Dose Admin Iohexol 60 ml 10/20/23 21:45 10/20/23 21:35 Omnipaque 350 Mg/Ml 100 Ml Btl IJ 11/19/23 23:59 60 ml DIRECTED FABIANA Administration Nitroglycerin 0.4 mg 10/20/23 17:22 10/20/23 17:40 Nitroglycerin 0.4 Mg Tab SL 0.4 mg Q5 MIN PRN X3 PRN Administration Sodium Chloride 0 ml 10/20/23 20:00 10/20/23 21:36 Normal Saline Flush 10 Ml Syr IVP 10 ml BID FABIANA Administration Sodium Chloride 50 ml 10/20/23 21:45 10/20/23 21:34 Normal Saline - Diluent 50 Ml Vial IJ 50 ml .FOR DI USE FABIANA Administration IV IV Catheter Type [Left Saline Lock Antecubital] IV Catheter Gauge [Left 18 Antecubital] Diet Orders Category Date Time Status Regular/Normal [DIET] Nutrition 10/21/23 Breakfast Ordered Diagnostics 10/20/23 10/20/23 10/20/23 Range/Units 20:42 18:50 17:42 WBC 5.43 (4.4-10.8) 10^3/uL RBC 4.11 (3.93-5.22) 10^6/uL Hgb 13.1 (11.2-15.7) g/dL Hct 39.4 (36.0-46.0) % MCV 96 H (80-95) fL MCH 31.9 (27.0-33.0) pg MCHC 33.2 (32.0-36.0) % RDW 13.4 (11.7-14.6) % Plt Count 314 (130-400) 10^3/uL MPV 9.5 (8.0-11.0) fL Immature Gran % 0.2 % Neutrophils % 53.5 % Lymphocytes % 38.1 % Monocytes % 6.6 % Eosinophils % 0.9 % Basophils % 0.7 % Nucleated RBC % 0.0 (0.0-0.3) % Absolute Neutrophils 2.90 (1.2-6.7) 10^3/uL Absolute Lymphocytes 2.07 (1.2-3.4) 10^3/uL Absolute Monocytes 0.36 (0.1-0.8) 10^3/uL Absolute Eosinophils 0.05 (0.0-0.7) 10^3/uL Absolute Basophils 0.04 (0.0-0.2) 10^3/uL D-Dimer 1378 H (<500) ng/mlFEU Sodium 136 (136-145) mmol/L Potassium 3.5 (3.5-5.1) mmol/L Chloride 101 (98-107) mmol/L Carbon Dioxide 29.5 (21.0-32.0) mmol/L Anion Gap 5.5 (3-11) mmol/L BUN 10 (7-18) mg/dL Creatinine 0.8 (0.55-1.02) mg/dL Est GFR (CKD-EPI 2020) 77.27 (mL/min/1.73m2) Glucose 132 H (74-106) mg/dL Calcium 10.0 (8.5-10.1) mg/dL Magnesium 2.1 (1.8-2.4) mg/dL Total Bilirubin 0.30 (0.2-1.0) mg/dL AST 26 (15-37) U/L ALT 30 (14-59) U/L Alkaline Phosphatase 94 (46-116) U/L Troponin I High Sens 6 5 4 (4-51) ng/L NT-Pro-B Natriuret Pep 39 (<300) pg/mL Total Protein 8.1 (6.4-8.2) g/dL Albumin 3.8 (3.4-5.0) g/dL Intake and Output - 24 Hour Total 10/20/23 17:14 thru 10/20/23 17:44 Intake Total 20 Balance 20 Weight 51.256 kg Intake: IV 20 Falls Risk Assessment History of Falls No History 10/20/23 17:29 Contributing Factors No Factors 10/20/23 17:29 Ambulatory Aids Independent 10/20/23 17:29 Tubes/Lines None 10/20/23 17:29 Gait Evaluation No gait disturbance 10/20/23 17:29 Cognition No cognitive impairment 10/20/23 17:29 Fall Total Score 0 10/20/23 17:29 Level of Risk Standard/Low Risk 10/20/23 17:29 Problems (Last Reviewed 10/20/23 @ 21:40 by Catrachito Vernon MD) Chest pain (Acute) v v v v v v v v v Sending and/or Receiving Nurses: Please use comment section below to note any information pertinent to the patient hand-off not included above. Information / Comments: Recieved report and Pt is going to room 212. Report received from: JOSUÉ Leger at [id number]
[2023-10-20] MEDS: Atorvastatin 10 MG TAB PO (23:08)
[2023-10-20] MEDS: Montelukast 10 MG TAB PO (23:08)
[2023-10-20] MEDS: Lactated Ringers 1,000 ML 80 ML IV (23:08)
--- NOTE | 2023-10-20 23:24 | DI.VRAD_ITS ---
PROCEDURE INFORMATION: Exam: CTA Chest With Contrast Exam date and time: 10/20/2023 9:37 PM Age: 73 years old Clinical indication: Other: Chest pain; Prior surgery; Surgery date: Post-operative (0-2 days); Surgery type: Cardiac cath TECHNIQUE: Imaging protocol: Computed tomographic angiography of the chest with contrast. Exam focused on the arteries. 3D rendering (Not supervised by radiologist): MIP and/or 3D reconstructed images were created by the technologist. Contrast material: OMNIPAQUE 350; Contrast volume: 60 ml; Contrast route: INTRAVENOUS (IV); COMPARISON: CR XR PORTABLE CHEST AP 10/20/2023 6:00 PM FINDINGS: Pulmonary arteries: Normal. No pulmonary emboli. Aorta: Unremarkable. No aortic aneurysm. No aortic dissection. Lungs: Bilateral apical fibrotic changes. Tree-in-bud infiltrates in the anterior segment of the left lower lobe. Right lower lobe atelectasis. Pleural spaces: Unremarkable. No pneumothorax. No pleural effusion. Heart: Unremarkable. No cardiomegaly. No pericardial effusion. Lymph nodes: Unremarkable. No enlarged lymph nodes. Bones/joints: Mild multilevel anterior osteophytes spine. Mild curvature of the thoracic spine convex to the right. Soft tissues: Unremarkable. IMPRESSION: 1. No pulmonary embolism. 2. Left lower lobe tree-in-bud infiltrates, consistent with pneumonia. Dictated and Authenticated by: Elias Sow MD. Ordering:REY Riggs MD
[2023-10-21 05:46] VITALS: BP 110/65; PULSE 71; RESP 16; TEMP 36.2; O2SAT 95
[2023-10-21 07:13] VITALS: BP 108/56; PULSE 70; RESP 16; TEMP 36.4; O2SAT 96
--- NOTE | 2023-10-21 07:24 | INITIAL_ITS ---
Date of service: 10/21/23 Time of Service: :24 Care Management Initial Assmt Initial Assessment Reason for Hospitalization: Chest Pain Functional Status/Living Situation Patient Presentation: Recent catheterization at [facility] (10/17/23) with ongoing chest pressure since discharge. Per MD, patient accepted in transfer to [facility]. Town of Residence: [place] Resides with: Spouse ([place]) Employment Status: Retired Instrumental Activities of Daily Living (ADLs): Independent Medications Medication Management: No Issues/Barriers identified Advance Directives Advance Directives: Do you have an Advance Directive: Y 09/20/19 15:14 AD On File at [facility]: N 08/19/18 08:27 Date Asked 10/20/23 10/21/23 11:26 AD Date Reviewed COLST On File at [facility] COLST Date Scanned Code Status Resuscitation Status Full Code Insurance Coverage/Financial Issues Insurance: Medicare BC/ Care Team Visit Care Team Role Provider Type Kalpana Ayon MD Primary Care Provider [facility] STAFF PHYSICIAN Humberto Kay MD Emergency Provider [facility] STAFF PHYSICIAN Catrachito Vernon MD Admit Provider [facility] STAFF PHYSICIAN Attending Provider Discharge Potential Discharge Needs: Consult Consult Services Needed: Cardiology ([facility]) Anticipated Barriers to Discharge: Bed availability (Transfer anticipated) Patient/Family Education Needs: Other (Transfer considerations) Transportation: EMS Plan: Transfer anticipated-[facility] Cardiology- following. [facility] will transport via EMS-coordinated by land planner. PFSH All Active Problems Infiltrate of lower lobe of left lung present on imaging study (Acute) Coronary atherosclerosis (Chronic) Chest pain (Acute) Chest pain on exertion (Acute) Family history of colon cancer (Acute) Family history of breast cancer (Acute) Atrophic vaginitis (Acute) Mild persistent asthma (Chronic) Medical History [place] exposure in utero Endometriosis Seasonal allergies Neck pain Vitamin D deficiency disease Anemia Family history of colon cancer requiring screening colonoscopy High cholesterol Family History Maternal Grandmother CAD (coronary artery disease) Heart disease several FL's 70 Stroke Mother Breast cancer CAD (coronary artery disease) Sister Breast cancer Maternal Uncle , age 56 Stroke Sister Uterine cancer Cervical cancer Father Colon cancer age 70 Paternal Grandfather Colon cancer in 70's Other Cancer Social History Smoking/Tobacco Use Status: Unknown Smoking risk assessment performed?: Yes Drug use: Never Household members: spouse Housing: house 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 What is your relationship status?: Panel score (0-1 are the most socially isolated patients): 1 What type of physical activity do you participate in: bicycling and regular exercise Duration: 30-45 minutes/day Female Reproductive History Menstrual Age of Menarche: 11 control method: none Menopause type: surgical Date of menopause: 02/10/79 History History 5 Para Hx # Term Pregnancies 3 Multiple births Hx # Pregnancies Ectopic pregnancies AB induced Hx Number of Living Children 3 AB spontaneous 2 SDOH(Care Management) Screening Will the Patient Participate in the Screening?: Yes Do you worry about having a steady place to live?: no In the past 12 months, have you had to go without electric, gas, oil or water in your home?: no Have you or anyone in your house had to go without enough food to eat?: no Has lack of transportation kept you from medical appointments or from doing things needed for daily living?: no Has anyone in your support network made you feel unsafe for any reason?: no
[2023-10-21 08:07] LABS: C-Reactive Protein < 0.50 mg/dL (<or=0.5)
[2023-10-21 08:47] LABS: Procalcitonin < 0.1 ng/mL
[2023-10-21 08:55] VITALS: BP 108/60; PULSE 71; RESP 14; TEMP 37.3; O2SAT 96
[2023-10-21] MEDS: Fexofenadine 180 MG TAB PO (08:57)
[2023-10-21] MEDS: Vitamins B Comp w/C TAB 1 TAB PO (08:57)
[2023-10-21] MEDS: Isosorbide Mononitrate 30 MG TABCR PO (08:58)
[2023-10-21] MEDS: Normal Saline Flush 10 ML SYR IVP (08:58)
--- NOTE | 2023-10-21 09:00 | PGE_ITS ---
Date of Service Date of service: 10/21/23 Time of Service: 08:15 Assessment and Plan Assessment and plan (1) Chest pain: Status: Acute Assessment and plan: chest pain suspicious for angina, occuring w/ less activity however w/out dynamic EKG changes and no rise in her HS troponin. continue Imdur, atorvastatin, ASA; plan for transfer [place] [facility] to service of Dr. Jose Manuel Meadows w hen bed becomes available. No heparin at present other than DVT prophylaxis Qualifiers: Chest pain type: chest pain due to myocardial ischemia Ischemic chest pain type: stable angina pectoris Qualified Code(s): I20.89 - Other forms of angina pectoris (2) Coronary atherosclerosis: Status: Chronic Assessment and plan: continue norvasc, Imdur added, continue ASA 81 mg daily, increase atorvastatin to 40 mg nightly, goal for LDL <70. transfer to [facility] as noted above Qualifiers: Coronary Disease-Associated Artery/Lesion type: [place] artery [place] vs. transplanted heart: [place] heart Associated angina: with stable angina Qualified Code(s): I25.118 - Atherosclerotic heart disease of [place] coronary artery with other forms of angina pectoris (3) Infiltrate of lower lobe of left lung present on imaging study: Status: Acute Assessment and plan: patient is asymptomatic for cough, sputum, fever, rigors or laboratory evidence of an acute infection, i.e. normal WBC 5430 and normal procalcitonin <0.1 and normal CRP < 0.50. This may be some scar tissue from her prior COVID infection but this does need follow up monitoring. I recommended to her and her that she make a follow up appointment w/ her diesel lube tech to review the CT findings and determinte how best to monitor or diagnose. Subjective Subjective Interval history since last seen: 73 yr old female admitted last night w/ angina quality CP described as a tightness w/ feeling of dyspnea. Workup last night included one EKG that showed no ischemia and two high sensitivity troponin I which were negative (taken about two hours apart). Symptoms resolved w/ NTG. She has known CAD and had recent cardiac cath at [facility] which demonstrated 50% narrowing of her LAD and 30% narrowing of one other vessel (this per her report, I do not have the cardiac cath report. [facility] was contacted by [facility] ED provider, Dr. Kay and the patient wa saccepted to the service of Dr. Jose Manuel Meadows at [facility]. Patient was already on an aspirin and amlodipine and atorvastatin for her CAD. Last night she was begun on Imdur. She is awaiting transfer to [facility]. Patient is feeling better today. No chest pain or pressure, no jaw pain and no dyspnea. Of note she had a d-dimer done last night that was elevated which led to CTA chest: no PE but she has LLL anterior segment tree in bud infiltrate and bilateral apical fibrotic changes. Note she had COVID 19 in July 2022. She has seen a diesel lube tech after her COVID infection. Exam Narrative Exam Narrative: Thin white female sitting up in bed, alert and oriented x 3, NAD Neck: supple, no JVD, normal carotid pulses, no thyromegaly Lungs: left lower lobe w/ some fine cellophane rales, no rhonchi or wheezing Heart: RRR, no murmur or rub or gallop Abdomen: no bruits, no organomegaly, normal bowel sounds Extremities: no edema or cyanosis, pedal pulses intact Objective Last Vital Signs Temp 36.4 C L 10/21/23 07:13 Pulse 70 10/21/23 07:13 Resp 16 10/21/23 07:13 BP 108/56 L 10/21/23 07:13 Pulse Ox 96 10/21/23 07:13 Laboratory Results - last 24 hr 10/20/23 10/20/23 10/20/23 17:42 18:50 20:42 WBC 5.43 RBC 4.11 Hgb 13.1 Hct 39.4 MCV 96 H MCH 31.9 MCHC 33.2 RDW 13.4 Plt Count 314 MPV 9.5 Immature Gran % 0.2 Neutrophils % 53.5 Lymphocytes % 38.1 Monocytes % 6.6 Eosinophils % 0.9 Basophils % 0.7 Nucleated RBC % 0.0 Absolute Neutrophils 2.90 Absolute Lymphocytes 2.07 Absolute Monocytes 0.36 Absolute Eosinophils 0.05 Absolute Basophils 0.04 D-Dimer 1378 H Sodium 136 Potassium 3.5 Chloride 101 Carbon Dioxide 29.5 Anion Gap 5.5 BUN 10 Creatinine 0.8 Est GFR (CKD-EPI 2020) 77.27 Glucose 132 H Calcium 10.0 Magnesium 2.1 Total Bilirubin 0.30 AST 26 ALT 30 Alkaline Phosphatase 94 Troponin I High Sens 4 5 6 C-Reactive Protein < 0.50 NT-Pro-B Natriuret Pep 39 Total Protein 8.1 Albumin 3.8 Procalcitonin < 0.1 Time Spent with Patient Time Spent with Patient: 35-49 minutes Time was spent: preparing to see the patient(eg.review tests), obtaining and/or reviewing separately otained hiistory, ordering medications,tests, procedures, referring, communicating with other health resident care coordinator, indepentently interpreting results, counseling the patient and care coordination
[2023-10-21] MEDS: Aspirin E.C. 81 MG TABEC PO (10:49)
[2023-10-21 11:00] LABS: Lab Add On Test DONE
[2023-10-21 11:14] VITALS: BP 122/58; PULSE 69; RESP 16; TEMP 36.4; O2SAT 97
--- NOTE | 2023-10-21 11:43 | PHA.REVIEW2 ---
Pharmacy Admission Review Admission Clinical Review Admission Pharmacy Review: Infiltrate of lower lobe of left lung present on imaging study (Acute) Chest pain (Acute) tramadol Allergy (Intermediate, Verified 10/20/23 17:46) Psychosis Resuscitation Status Full Code Height 5 ft 6 in Weight 51.256 kg Comments Comments/Follow Ups: Waiting on bed at [facility], accepted for transfer Pharmacy Admission Review Renal Dosing Renal Dosing: BUN 10 mg/dL (7-18) 10/20/23 17:42 Creatinine 0.8 mg/dL (0.55-1.02) 10/20/23 17:42 Medications needing adjustments: Reviewed (CrCl 39.94 mL/min) List of meds needing interventions: Current medications are okay Anticoagulation Anticoagulation: Hgb 13.1 g/dL (11.2-15.7) 10/20/23 17:42 Hct 39.4 % (36.0-46.0) 10/20/23 17:42 Plt Count 314 10^3/uL (130-400) 10/20/23 17:42 Creatinine 0.8 mg/dL (0.55-1.02) 10/20/23 17:42 DVT Prophylaxis: Reviewed Medications: Enoxaparin (40mg daily) Relevant Labs Relevant Labs: Sodium 136 mmol/L (136-145) 10/20/23 17:42 Potassium 3.5 mmol/L (3.5-5.1) 10/20/23 17:42 Chloride 101 mmol/L (98-107) 10/20/23 17:42 Magnesium 2.1 mg/dL (1.8-2.4) 10/20/23 17:42 C-Reactive Protein < 0.50 mg/dL (<or=0.5) 10/20/23 20:42 Electrolytes, C-Reactive P, ESR: Reviewed (No new labs for today) Cardiac Review Cardiac Review: NT-Pro-B Natriuret Pep 39 pg/mL (<300) 10/20/23 17:42 Blood Pressure 122/58 1114 Blood Pressure 108/60 0855 Blood Pressure 108/56 0713 Blood Pressure 110/65 0546 BP, HR, EF%: Reviewed (HR WNL) QTc Review QTc: Reviewed (413 from 10/20/23) IV to PO Switch IV Medications: Reviewed Home Meds Home Med List reviewed: Intervened Relevent Home Meds Not ordered & why?: Vitamin D3, CoQ-10, Vagifem (twice weekly) Updated home med list: changed fexofenadine from 60mg daily to 180mg daily based on fill history. Changed order to match. Current Meds Current Medication Order Review: Intervened Comments: Added IV admission order set Order for aspirin was put in as PRN from home med list, reached out to provider who said they wanted it to be scheduled daily. Order was changed. Atorvastatin was increased from 10mg to 40mg but order was still for 10mg tablets. Changed order to 40mg tablets to make administration easier. Pharmacy Antibiotic Review Relevant Labs: Relevant Labs 10/20/23 20:42 C-Reactive Protein < 0.50 Procalcitonin < 0.1 Comments Comments/Follow Ups: Waiting on bed at [facility], accepted for transfer
--- NOTE | 2023-10-21 12:03 | DSE_ITS ---
Date of service: 10/21/23 Time of Service: 12:03 DS: Diagnosis Discharge Diagnosis (1) Chest pain: Status: Acute Asessment and Plan: relieved w/ NTG, negative HS troponin x 2 sets, normal EKG. patient begun on Imdur, continued on aspirin and atorvastatin and norvasc. Patient sent to [facility] to the care of Dr. Jose Manuel Meadows given the patients known hx of non-occlusive CAD. CTA negative for P.E. however does show LLL bud in tree infiltrates of undetermined significance which needs pulmonary follow up. (2) Coronary atherosclerosis: Status: Chronic (3) Infiltrate of lower lobe of left lung present on imaging study: Status: Acute Asessment and Plan: see above. Discharge Plan Disposition Patient Disposition: Transfer-Acute Inpatient Care Specific Acute Inpt Facility: [facility] Condition: Stable Discharge Details Reason For Visit: CP Admit Date/Time: 10/20/23 21:55 Admit Provider: Catrachito Vernon Attending Provider: Catrachito Vernon Primary Care Provider: [facility] Hospital Course: 73-year-old female with history of known coronary artery disease nonobstructive after recent cardiac catheterization presented to the emergency department with anginal quality chest tightness and dyspnea. Initial EKG showed no acute ischemic changes. Patient got proper relief with nitroglycerin. 2 high- sensitivity troponin I levels were obtained 2 hours apart and were negative. Chest pain was relieved. [facility] transfer center was contacted and it was advised the patient be admitted to [facility] while awaiting bed transfer. Patient was accepted to the service of Dr. Jose Manuel Meadows at [facility]. Patient remained pain-free. However as part of her workup she had a CTA of her chest to rule out a pulmonary embolism. This was obtained after D-dimer was found to be elevated at 1378. CTA of the chest was obtained and showed no pulmonary embolism but showed left lower lobe tree-in-bud infiltrates. The patient had no symptoms of pneumonia. Patient denied cough fever chills or sputum production. Furthermore her laboratory workup was not consistent with an acute infectious process as her WBCs were normal at 5430 her procalcitonin level was less than 0.1 and her C-reactive protein was less than 0.5. Upon further history was found the patient had COVID-19 infection about 14 months ago. Suspected that she may have some chronic scarring from a COVID infection however infiltrate is suspicious enough that this warrants further imaging and follow-up by pulmonary services. Patient and her were made aware of these abnormal CT findings and my recommendation that she see her reports analyst. Patient was transferred to [facility] in stable condition and with improvement in her symptoms. Home Meds and New Rx's Prescriptions: No Action montelukast 10 mg tablet 10 mg PO QPM vitamin B complex [B Complex-Vitamin B12] tablet 1 tab PO DAILY cholecalciferol (vitamin D3) 50,000 unit capsule 50,000 unit PO QWEEK levalbuterol tartrate [Xopenex HFA] 45 mcg/actuation HFA aerosol inhaler 2 inh IH Q6H aspirin [Adult Low Dose Aspirin] 81 mg tablet,delayed release (DR/EC) 81 mg PO DAILY PRN estradiol [Vagifem] 10 mcg tablet 10 mcg vaginal DAILY 360 Days Qty: 30 3RF Rx Instructions: Insert vaginally daily for 7 days, then twice weekly. atorvastatin [Lipitor] 10 mg tablet 10 mg PO QHS amlodipine 5 mg tablet 5 mg PO DAILY Patient Comments: TAKE 1 TABLET BY MOUTH DAILY coenzyme Q10 [Co Q-10] 10 mg capsule 10 mg PO ONCE fexofenadine [Allergy Relief (fexofenadine)] 180 mg tablet 180 mg PO DAILY Patient Comments: TAKE 1 TABLET BY MOUTH EVERY DAY Discharge Instructions Instructions: Angina (DC) Additional Instructions: You were admitted for evaluation and monitoring of chest pain/dyspnea. You had serial troponin I levels and an EKG which showed that you did not suffer a heart attack. YOu had a CT of your chest which did not show any blood clots in the lungs (one of the more serious causes for chest pain and dyspnea) however you were found to have infiltrate in the left lower lung that has atypical appearance to this, tree in bud infiltrate. While you exhibited no symptoms for pneumonia i.e. no cough or sputum production and no fevers and your labs showed no acute infection i.e. normal white blood cell count and normal procalcitonin and normal c reactive protein (both markers for infection/inflammation), nevertheless the left lower lobe infiltrate needs further evaluation with your reports analyst. This could be scar tissue from your prior COVID infection but also could be a more serious condition and a cancer has not been excluded. Please have your pulmonary physician follow up with you. Activity:: Activity as Tolerated Equipment/Supplies:: No Equipment Needed Diet:: cardiac healthy DS: Summary Time Spent with Patient providing and/or coordinating discharge services: Greater than 30 minutes Status at Discharge Functional status at discharge: independent ambulation Overall status at discharge: patient is progressing back to baseline Mental Status: mental status grossly normal Speech and Movement: speech and movement normal Mood: congruent mood Affect: normal affect Quality:SDOH Health Related Social Needs: No Data to Display Exam Narrative Exam Narrative: Thin white female sitting up in bed, alert and oriented x 3, NAD Neck: supple, no JVD, normal carotid pulses, no thyromegaly Lungs: left lower lobe w/ some fine cellophane rales, no rhonchi or wheezing Heart: RRR, no murmur or rub or gallop Abdomen: no bruits, no organomegaly, normal bowel sounds Extremities: no edema or cyanosis, pedal pulses intact Psych Mental Status: mental status grossly normal Speech and Movement: speech and movement normal Mood: congruent mood Affect: normal affect DS: Data Vitals/I&O Vitals and I&O: Vital Signs Temperature 36.4 C L 10/21/23 11:14 Temperature Source Temporal Artery Scan 10/21/23 11:14 Pulse 69 10/21/23 11:14 Pulse Rhythm Regular 10/20/23 22:35 Pulse 79 10/20/23 22:01 Respiratory Rate 16 10/21/23 11:14 Respiratory Effort Normal, Non-Labored 10/20/23 22:35 Respiratory Depth Normal 10/20/23 22:35 Respiratory Pattern Normal 10/20/23 22:35 Blood Pressure 122/58 L 10/21/23 11:14 Blood Pressure Mean 62 10/20/23 22:01 Blood Pressure Position Sitting 10/20/23 17:24 Pulse Oximetry 97 10/21/23 11:14 Oxygen Delivery Method Room Air 10/21/23 11:14 Oxygen Flow Rate 0 10/21/23 11:14 Pain Level 0 10/20/23 22:36 Intake & Output 10/20/23 10/21/23 10/21/23 23:59 11:59 23:59 Intake Total 120 / 120 0 / 0 Balance 120 / 120 0 / 0 Weight 51.256 kg Intake: IV 20 / 20 0 / 0 Oral 100 / 100 Other: Urine Color Yellow Yellow Urine Appearance Clear Comment independent Voiding Methods Toilet Toilet Data Completed and Pending Labs on day of discharge: Labs from last 24 hours 10/21/23 10/20/23 10/20/23 11:00 20:42 18:50 WBC RBC Hgb Hct MCV MCH MCHC RDW Plt Count MPV Immature Gran % Neutrophils % Lymphocytes % Monocytes % Eosinophils % Basophils % Nucleated RBC % Absolute Neutrophils Absolute Lymphocytes Absolute Monocytes Absolute Eosinophils Absolute Basophils D-Dimer Sodium Potassium Chloride Carbon Dioxide Anion Gap BUN Creatinine Est GFR (CKD-EPI 2020) Glucose Calcium Magnesium Total Bilirubin AST ALT Alkaline Phosphatase Troponin I High Sens 6 5 C-Reactive Protein < 0.50 NT-Pro-B Natriuret Pep Total Protein Albumin Procalcitonin < 0.1 Add-On Test Request DONE 10/20/23 17:42 WBC 5.43 RBC 4.11 Hgb 13.1 Hct 39.4 MCV 96 H MCH 31.9 MCHC 33.2 RDW 13.4 Plt Count 314 MPV 9.5 Immature Gran % 0.2 Neutrophils % 53.5 Lymphocytes % 38.1 Monocytes % 6.6 Eosinophils % 0.9 Basophils % 0.7 Nucleated RBC % 0.0 Absolute Neutrophils 2.90 Absolute Lymphocytes 2.07 Absolute Monocytes 0.36 Absolute Eosinophils 0.05 Absolute Basophils 0.04 D-Dimer 1378 H Sodium 136 Potassium 3.5 Chloride 101 Carbon Dioxide 29.5 Anion Gap 5.5 BUN 10 Creatinine 0.8 Est GFR (CKD-EPI 2020) 77.27 Glucose 132 H Calcium 10.0 Magnesium 2.1 Total Bilirubin 0.30 AST 26 ALT 30 Alkaline Phosphatase 94 Troponin I High Sens 4 C-Reactive Protein NT-Pro-B Natriuret Pep 39 Total Protein 8.1 Albumin 3.8 Procalcitonin Add-On Test Request PFSH All Active Problems Infiltrate of lower lobe of left lung present on imaging study (Acute) Coronary atherosclerosis (Chronic) Chest pain (Acute) Chest pain on exertion (Acute) Family history of colon cancer (Acute) Family history of breast cancer (Acute) Atrophic vaginitis (Acute) Mild persistent asthma (Chronic) Medical History ALMA exposure in utero Endometriosis Seasonal allergies Neck pain Vitamin D deficiency disease Anemia Family history of colon cancer requiring screening colonoscopy High cholesterol Family History Maternal Grandmother CAD (coronary artery disease) Heart disease several MA's 70 Stroke Mother Breast cancer CAD (coronary artery disease) Sister Breast cancer Maternal Uncle , age 56 Stroke Sister Uterine cancer Cervical cancer Father Colon cancer age 70 Paternal Grandfather Colon cancer in 70's Other Cancer Social History Smoking/Tobacco Use Status: Unknown Smoking risk assessment performed?: Yes Drug use: Never Household members: spouse Housing: house 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 What is your relationship status?: Panel score (0-1 are the most socially isolated patients): 1 What type of physical activity do you participate in: bicycling and regular exercise Duration: 30-45 minutes/day Female Reproductive History Menstrual Age of Menarche: 11 control method: none Menopause type: surgical Date of menopause: 02/10/79 History History 5 Para Hx # Term Pregnancies 3 Multiple births Hx # Pregnancies Ectopic pregnancies AB induced Hx Number of Living Children 3 AB spontaneous 2 Time Spent with Patient Time Spent with Patient: <45 minutes Time was spent: preparing to see the patient(eg.review tests), referring, communicating with other health coronary care unit nurse, indepentently interpreting results, counseling the patient and care coordination
--- NOTE | 2023-10-21 14:47 | CHAPLAIN ---
Thao was sitting up in bed when I visited. She had a recent cardiac catheretization, on 10/16, and was continuing to have chest discomfort which she said she believed were due to the procedure, but it not. She's waiting for a bed to open up at [facility]. Her with her. She said she's learning what it's like to follow the trail of needed care following a cardiac procedure.
[2023-10-21 15:40] VITALS: BP 105/57; PULSE 74; RESP 16; TEMP 37; O2SAT 96
--- NOTE | 2023-10-21 17:25 | NUR.NOTE ---
Nursing Note: Reviewed D/C instructions with pt and pts , both verbalized understanding. Pt sent with all belongings. Pt left via stretcher with [facility] transport to [facility] at 1647. Attempted to call report at 1702, was on hold for 7 mins. Called [facility] again at 1711, was on hold until 1726. Will attempt to call back later.
--- NOTE | 2023-10-21 19:19 | NUR.NOTE ---
Nursing Note: Report given to Tammy MOSES of [facility] at 1848.
== END 2023-10-21 16:55 | disposition short-term general hospital (02) ==
LOC: ER 22:16 → MS 22:28
PROVIDERS: Internal Medicine; Admitting Provider General Practice; Emergency Provider Emergency Medicine; PCP Family Medicine; Visit Provider General Practice
DX: I25.118 Atherosclerotic heart disease of native coronary artery with other forms of angina pectoris (principal); R91.8 Other nonspecific abnormal finding of lung field; J45.30 Mild persistent asthma, uncomplicated; M54.2 Cervicalgia; E78.00 Pure hypercholesterolemia, unspecified; D64.9 Anemia, unspecified; E55.9 Vitamin D deficiency, unspecified; Z79.899 Other long term (current) drug therapy; Z80.0 Family history of malignant neoplasm of digestive organs
CPT/HCPCS: 00123; 36415; 71275; 80053; 84145; 93005; 99285; 71045; 83735; 83880; 84484; 85025; 85379; 86140; 93010; 99222; 99238; G0378; J3490

== ENCOUNTER 2023-11-28 17:45 | Outpatient (REF) | payer MEDICARE, BC, SELFPAY ==
[2024-01-19 11:59] LABS: AFB Culture Result See Comments
== END 2023-11-28 17:46 | disposition home or self-care (01) ==
LOC: LBN 17:45
PROVIDERS: PCP Family Medicine; Visit Provider Internal Medicine Critical Care Medicine
DX: R91.8 Other nonspecific abnormal finding of lung field (principal)
CPT/HCPCS: 87116; 87206; 87070; 87205

== ENCOUNTER 2024-06-30 10:40 | Outpatient (REF) | payer MEDICARE, BC, SELFPAY ==
[2024-06-30 15:29] LABS: Abs Immature Grans 0.02 10^3/uL (0.0-0.06); Absolute Basophil Count 0.03 10^3/uL (0.0-0.2); Absolute Eosinophil Count 0.08 10^3/uL (0.0-0.7); Absolute Lymphocyte Count 1.21 10^3/uL (1.2-3.4); Absolute Monocyte Count 0.44 10^3/uL (0.1-0.8); Absolute Neutrophil Count 3.74 10^3/uL (1.2-6.7); Basophils % 0.5 %; Eosinophils % 1.4 %; HCT 35.3 % (36.0-46.0); HGB 11.8 g/dL (11.2-15.7); Immature Grans % 0.4 %; Lymphocytes % 21.9 %; MCHC 33.4 % (32.0-36.0); MCV 96 fL (80-95); MPV 9.7 fL (8.0-11.0); Neutrophils % 67.8 %; Platelet Count 309 10^3/uL (130-400); RBC 3.69 10^6/uL (3.93-5.22); RDW 15.3 % (11.7-14.6); RDW-SD 53.9 fL; WBC 5.52 10^3/uL (4.4-10.8)
[2024-06-30 15:43] LABS: ALT 40 U/L (14-59); AST 24 U/L (15-37); Albumin 3.8 g/dL (3.4-5.0); Alkaline Phosphatase 93 U/L (46-116); BUN 15 mg/dL (7-18); Bilirubin, Total 0.4 mg/dL (0.2-1.0); CREATININE 0.7 mg/dL (0.55-1.02); Calcium 9.3 mg/dL (8.5-10.1); Chloride 104 mmol/L (98-107); Estimated GFR 90.14 (mL/min/1.73m2); Glucose 116 mg/dL (74-106); Sodium 140 mmol/L (136-145); Total Protein 7.2 g/dL (6.4-8.2)
[2024-06-30 18:13] LABS: Ferritin 63 ng/mL (8-252); Folate 15.3 ng/mL (8.6-20.0); Vitamin B12 399 pg/mL (193-986)
== END 2024-06-30 10:41 | disposition home or self-care (01) ==
LOC: NCHCN 10:40
PROVIDERS: PCP Family Medicine; Visit Provider Family Medicine
DX: R61 Generalized hyperhidrosis (principal); D50.9 Iron deficiency anemia, unspecified
CPT/HCPCS: 80053; 82607; 82728; 82746; 85025

== ENCOUNTER 2024-09-22 14:50 | Outpatient (REF) | payer MEDICARE, BC, SELFPAY ==
[2024-09-22 15:31] LABS: HCT 36.3 % (36.0-46.0); HGB 11.8 g/dL (11.2-15.7); MCH 31.2 pg (27.0-33.0); MCHC 32.5 % (32.0-36.0); MCV 96 fL (80-95); MPV 10.3 fL (8.0-11.0); Platelet Count 330 10^3/uL (130-400); RBC 3.78 10^6/uL (3.93-5.22); RDW 14.1 % (11.7-14.6); RDW-SD 50.2 fL; WBC 5.90 10^3/uL (4.4-10.8)
[2024-09-22 23:01] LABS: Vitamin B12 1108 pg/mL (193-986)
== END 2024-09-22 14:51 | disposition home or self-care (01) ==
LOC: NCHCN 14:50
PROVIDERS: PCP Family Medicine; Visit Provider Family Medicine
DX: R79.89 Other specified abnormal findings of blood chemistry (principal)
CPT/HCPCS: 85027; 82607